=== PATIENT | male | born 1975 | race Caucasian/White ===

== ENCOUNTER 2016-11-17 20:35 | Emergency (ER) | payer OTHER ==
[~2016-11-17] VITALS: Ht 175.3 cm; Wt 110.0 kg
[~2016-11-17 20:35] MED LIST: FLUT1SPR5 EACH NARE
[2016-11-17 20:41] VITALS: BP 188/118; PULSE 75; RESP 12; TEMP 98.2; O2SAT 96
[2016-11-17] MEDS ORDERED: cloNIDine HCL 0.1 MG TAB PO ONE (21:00)
[2016-11-17] MEDS ORDERED: ACETAMINOPHEN 325 MG TAB PO ONE (21:00)
--- NOTE | 2016-11-17 21:09 | PD ---
HPI Chief Complaint: Hypertension Time Seen by Provider: 20:45 Travel History International Travel<30 days: No Contact w/Intl Traveler<30days: No Traveled to known affect area: No History of Present Illness HPI This 41-year-old male is complaining of headache and high blood pressure. He has a history of hypertension in the past has been on lisinopril 10 mg daily. A few months ago he was taken off lisinopril. He says he is had been eating better off some weight and did not need to take it. He had a stressful day at work on Friday. He says that Friday he had some headache which ultimately subsided and then today he has had increasing headache and is had repeated readings of his blood pressure which are been elevated. He does not have any numbness or tingling. He did take a lisinopril earlier today which he had at home. [facility] Past Medical History Anxiety: Yes Hypertension: Yes Tetanus Vaccination: > 5 Years Influenza Vaccination: No Past Surgical History Appendectomy: Yes Social History Alcohol Use: Yes ("sometimes daily") Tobacco Use: No Allergies-Medications (Allergen,Severity, Reaction): Coded Allergies: No Known Allergies (Verified , 11/17/16) Reported Meds & Prescriptions Reported Meds & Active Scripts Active Review of Systems General / Constitutional: No: Fever, Chills Eyes: No: Diploplia HENT: Positive: Headaches Cardiovascular: No: Chest Pain or Discomfort, Palpitations Respiratory: No: Cough, Shortness of Breath Gastrointestinal: No: Nausea, Vomiting Genitourinary: No: Frequency Musculoskeletal: No: Myalgias, Arthralgias Skin: No Rash Neurologic: Positive: Headache Hematologic/Lymphatic: No: Easy Bruising Physical Exam Narrative GENERAL well-developed male. blood pressure initially 188/118 SKIN: Focused skin assessment warm/dry. HEAD: Atraumatic. Normocephalic. EYES: Pupils equal and round. No scleral icterus. No injection or drainage. ENT: No nasal bleeding or discharge. Mucous membranes pink and moist. NECK: Trachea midline. No JVD. CARDIOVASCULAR: Regular rate and rhythm. No murmur appreciated. RESPIRATORY: No accessory muscle use. Clear to auscultation. Breath sounds equal bilaterally. GASTROINTESTINAL: Abdomen soft, non-tender, nondistended. Hepatic and splenic margins not palpable. MUSCULOSKELETAL: No obvious deformities. No clubbing. No cyanosis. No edema. NEUROLOGICAL: Awake and alert. No obvious cranial nerve deficits. Motor grossly within normal limits. Normal speech. PSYCHIATRIC: Appropriate mood and affect; insight and judgment normal. Data Data Last Documented VS Vital Signs Date Time Temp Pulse Resp B/P Pulse Ox O2 Delivery O2 Flow Rate FiO2 11/17/16 21:20 82 18 163/97 98 Room Air 11/17/16 20:41 98.2 Orders Complete Blood Count With Diff (11/17/16 20:53) Basic Metabolic Panel (Bmp) (11/17/16 20:53) Urinalysis - C+S If Indicated (11/17/16 20:53) Ct Brain W/O Iv Contrast(Rout) (11/17/16 20:53) Clonidine (Catapres) (11/17/16 21:00) Acetaminophen (Tylenol) (11/17/16 21:00) Labs Laboratory Tests Test 11/17/16 21:20 White Blood Count 8.2 TH/MM3 Red Blood Count 5.38 MIL/MM3 Hemoglobin 15.5 GM/DL Hematocrit 47.2 % Mean Corpuscular Volume 87.8 FL Mean Corpuscular Hemoglobin 28.9 PG Mean Corpuscular Hemoglobin 32.9 % Concent Red Cell Distribution Width 13.5 % Platelet Count 313 TH/MM3 Mean Platelet Volume 7.8 FL Neutrophils (%) (Auto) 55.2 % Lymphocytes (%) (Auto) 28.3 % Monocytes (%) (Auto) 8.1 % Eosinophils (%) (Auto) 7.2 % Basophils (%) (Auto) 1.2 % Neutrophils # (Auto) 4.5 TH/MM3 Lymphocytes # (Auto) 2.3 TH/MM3 Monocytes # (Auto) 0.7 TH/MM3 Eosinophils # (Auto) 0.6 TH/MM3 Basophils # (Auto) 0.1 TH/MM3 CBC Comment DIFF FINAL Differential Comment Urine Color STRAW Urine Turbidity CLEAR Urine pH 7.0 Urine Specific [place] 1.011 Urine Protein NEG mg/dL Urine Glucose (UA) NEG mg/dL Urine Ketones NEG mg/dL Urine Occult Blood NEG Urine Nitrite NEG Urine Bilirubin NEG Urine Leukocyte Esterase TRACE Urine WBC 0-2 /hpf Urine Squamous Epithelial 0-5 /hpf Cells Urine Amorphous Sediment FEW Urine Mucus OCC /lpf Microscopic Urinalysis Comment CULT NOT INDICATED Sodium Level 141 MEQ/L Potassium Level 3.9 MEQ/L Chloride Level 105 MEQ/L Carbon Dioxide Level 29.9 MEQ/L Anion Gap 6 MEQ/L Blood Urea Nitrogen 13 MG/DL Creatinine 1.00 MG/DL Estimat Glomerular Filtration 83 ML/MIN Rate Random Glucose 101 MG/DL Calcium Level 9.2 MG/DL MDM Medical Decision Making Medical Screen Exam Complete: Yes Emergency Medical Condition: Yes Medical Record Reviewed: Yes Differential Diagnosis Differential includes intracerebral hemorrhage, hypertension, renal insufficiency Narrative Course CT of the brain is negative. Lab work shows normal renal function. Patient was given clonidine and had a good response with lowering of his blood pressure and resolution of his headache. He is stable for discharge. I recommended that he take lisinopril daily. I will give him a few tablets of clonidine to use on an as-needed basis Diagnosis Primary Impression: Hypertension Qualified Code: I10 - Essential hypertension Scripts Clonidine 0.1 Mg Tab0.1 Mg PO DAILY PRN (SBP>180, DBP>100, HR>65) #30 TAB Ref 0 Prov:Prem Barber MD 11/17/16 Disposition: DISCHARGE HOME Condition: Stable Prem Barber MD Nov 17, 2016 21:09
[2016-11-17 21:20] VITALS: BP 163/97; PULSE 82; RESP 18; O2SAT 98
--- NOTE | 2016-11-17 21:27 | RADHPO ---
EXAM DATE/TIME: 11/17/2016 20:52 [facility] COMPARISON: No previous studies available for comparison. INDICATIONS : Hypertension with severe headache. RADIATION DOSE: 61.20 CTDIvol (mGy) MEDICAL HISTORY : Hypertension. SURGICAL HISTORY : None. ENCOUNTER: Initial ACUITY: 1 day PAIN SCALE: 9/10 LOCATION: cranial TECHNIQUE: Multiple contiguous axial images were obtained of the head. Using automated exposure control and adj ustment of the mA and/or kV according to patient size, radiation dose was kept as low as reasonably a chievable to obtain optimal diagnostic quality images. FINDINGS: CEREBRUM: The ventricles are normal for age. No evidence of midline shift, mass lesion, hemorrhage or acute in farction. No extra-axial fluid collections are seen. POSTERIOR FOSSA: The cerebellum and brainstem are intact. The 4th ventricle is midline. The cerebellopontine angle i s unremarkable. EXTRACRANIAL: The visualized portion of the orbits is intact. SKULL: The calvaria is intact. No evidence of skull fracture. CONCLUSION: Negative noncontrast CT brain. Lito Vital MD on November 17, 2016 at 21:24 Board Certified Radiologist. This report was verified electronically.
[2016-11-17 21:28] LABS: AUTOMATED NEUTROPHIL # 4.5 TH/MM3 (1.8-7.7); BASOPHIL # 0.1 TH/MM3 (0-0.2); BASOPHIL % 1.2 % (0.0-2.0); BLOOD, URINE NEG (NEG); EOSINOPHIL # 0.6 TH/MM3 (0-0.4); EOSINOPHIL % 7.2 % (0.0-4.0); GLUCOSE,URINE NEG (NEG); HEMATOCRIT 47.2 % (39.0-51.0); HEMO FLAGS DIFF FINAL; KETONE, URINE NEG (NEG); LYMPH % 28.3 % (9.0-44.0); LYMPHOCYTE # 2.3 TH/MM3 (1.0-4.8); MEAN CELL VOLUME 87.8 FL (80.0-100.0); MEAN CORPUSCULAR HEMOGLOBIN 28.9 PG (27.0-34.0); MEAN CORPUSCULAR HGB CONC 32.9 % (32.0-36.0); MONO % 8.1 % (0.0-8.0); NEUT % 55.2 % (16.0-70.0); NITRITE,URINE NEG (NEG); PLATELET COUNT 313 TH/MM3 (150-450); RED BLOOD COUNT 5.38 MIL/MM3 (4.50-5.90); RED CELL DISTRIBUTION WIDTH 13.5 % (11.6-17.2); WHITE BLOOD COUNT 8.2 TH/MM3 (4.0-11.0)
[2016-11-17 21:45] LABS: URINE COLOR STRAW (YELLW/STRAW)
[2016-11-17 21:47] LABS: MUCUS URINE OCC /lpf (OCC); SQUAMOUS EPITHELIAL CELL URINE 0-5 /hpf (0-5)
[2016-11-17 21:48] LABS: COMMENT (UR) CULT NOT INDICATED; CULTURE IF INDICATED CULT NOT INDICATED; POTASSIUM 3.9 MEQ/L (3.5-5.1); WBC, URINE 0-2 /hpf (0-5)
[2016-11-17 21:50] VITALS: BP 144/93; PULSE 78; RESP 17; O2SAT 98
[2016-11-17 21:51] LABS: BICARBONATE 29.9 MEQ/L (21.0-32.0)
[2016-11-17] MEDS ORDERED: CLON0.1T PO (22:00)
[2016-11-17 22:07] VITALS: RESP 16
[2016-11-17 22:16] VITALS: BP 135/82
[2016-11-19] MEDS ORDERED: LISI10TA3 PO (11:27)
== END 2016-11-17 22:17 | disposition home or self-care (01) ==
LOC: PHED 20:35
DX: I10 Essential (primary) hypertension (principal); R51 Headache
CPT/HCPCS: 70450; 80048; 81001; 85025